=== PATIENT | female | born 1990 | race American Indian/Alaskan Native ===

== ENCOUNTER 2016-10-03 01:45 | Emergency (ER) | payer MEDICAID ==
[2016-10-03 02:33] LABS: Red Blood Count 3.77 M/mm3 (3.65-5.03); White Blood Count 5.8 K/mm3 (4.5-11.0)
[2016-10-03 02:34] LABS: Basophils % (Auto) 0.3 % (0.0-1.8); Eosinophils % (Auto) 0.8 % (0.0-4.3); Hematocrit 34.6 % (30.3-42.9); Hemoglobin 11.6 gm/dl (10.1-14.3); Mean Corpuscular HGB Conc 34 % (30-34); Mean Corpuscular Hemoglobin 31 pg (28-32); Mean Corpuscular Volume 92 fl (79-97); Platelet Count 258 K/mm3 (140-440); Red Cell Distribution Width 11.9 % (13.2-15.2)
[2016-10-03 03:24] LABS: Bilirubin,Urine NEG (Negative); Blood,Urine SM (Negative); Ketones,Urine TR mg/dL (Negative); Leukocyte Esterase,Urine NEG (Negative); Mucus,Urine FEW /HPF; Nitrite,Urine NEG (Negative); Protein,Urine <15 mg/dL mg/dL (Negative)
[2016-10-03 06:50] VITALS: BP 118/54
--- NOTE | 2016-10-05 17:27 | ED Elopement Review ---
ED Pt Elopement review - Results review Lab results: Laboratory Tests 10/03/16 10/03/16 10/03/16 02:05 02:05 02:06 WBC 5.8 RBC 3.77 Hgb 11.6 Hct 34.6 MCV 92 MCH 31 MCHC 34 RDW 11.9 L Plt Count 258 Lymph % (Auto) 30.9 [place] % (Auto) 9.5 H Eos % (Auto) 0.8 Baso % (Auto) 0.3 Lymph # 1.8 [place] # 0.5 Eos # 0.0 Baso # 0.0 Seg Neutrophils % 58.5 Seg Neutrophils # 3.4 HCG, Quant [id number] H Urine Color Urine Turbidity Urine pH Ur Specific [place] Urine Protein Urine Glucose (UA) Urine Ketones Urine Blood Urine Nitrite Urine Bilirubin Urine Urobilinogen Ur Leukocyte Esterase Urine WBC (Auto) Urine RBC (Auto) U Epithel Cells (Auto) Amorphous Crystals Urine Mucus Blood Type O POSITIVE Antibody Screen TNR CH[facility]STOFER Antibody Screen Negative 10/03/16 02:54 WBC RBC Hgb Hct MCV MCH MCHC RDW Plt Count Lymph % (Auto) [place] % (Auto) Eos % (Auto) Baso % (Auto) Lymph # [place] # Eos # Baso # Seg Neutrophils % Seg Neutrophils # HCG, Quant Urine Color Yellow Urine Turbidity Clear Urine pH 6.0 Ur Specific [place] 1.023 Urine Protein <15 mg/dl Urine Glucose (UA) Neg Urine Ketones Tr Urine Blood Sm Urine Nitrite Neg Urine Bilirubin Neg Urine Urobilinogen 4.0 Ur Leukocyte Esterase Neg Urine WBC (Auto) 3.0 Urine RBC (Auto) 3.0 U Epithel Cells (Auto) 1.0 Amorphous Crystals Few Urine Mucus Few Blood Type Antibody Screen CH[facility]STOFER Antibody Screen - Call Back decision Pt Call Back Decision: Pt to F/U with PMD
== END 2016-10-03 14:00 | disposition left against medical advice (07) ==
LOC: ED 01:45
DX: N93.9 Abnormal uterine and vaginal bleeding, unspecified (principal); R10.30 Lower abdominal pain, unspecified; R11.0 Nausea; Z53.21 Procedure and treatment not carried out due to patient leaving prior to being seen by health care provider
CPT/HCPCS: 36415; 81001; 84702; 85025; 86850; 86900; 86901